=== PATIENT | female | born 1990 | race Caucasian/White ===

== ENCOUNTER 2023-03-01 12:30 | Emergency (ER) | payer OTHER ==
[~2023-03-01] VITALS: Ht 154.9 cm; Wt 68.0 kg
[2023-03-01 12:47] VITALS: O2SAT 97
[2023-03-01] MEDS ORDERED: KETOROLAC TROMETHAMINE 15 MG INJ IVP ONE (13:00)
[2023-03-01] MEDS ORDERED: ACETAMINOPHEN 325 MG TABLET PO ONE (13:00)
[2023-03-01] MEDS ORDERED: IV NORMAL SALINE 500 ML BAG IV ONE (13:00)
[2023-03-01] MEDS ORDERED: KETOROLAC TROMETHAMINE 15 MG INJ ONE (13:00)
[2023-03-01] MEDS ORDERED: METOCLOPRAMIDE HCL 10 MG/2 ML VIAL IV ONE (13:00)
[2023-03-01] MEDS ORDERED: METOCLOPRAMIDE HCL 10 MG/2 ML VIAL ONE (13:00)
[2023-03-01] MEDS ORDERED: ACETAMINOPHEN 325 MG TABLET ONE (13:00)
== END 2023-03-01 14:30 | disposition home or self-care (01) ==
LOC: ER 12:30
DX: G43.909 Migraine, unspecified, not intractable, without status migrainosus (principal)
CPT/HCPCS: 99284; 96374; 96361; 96375; J1885; J2765; J7040; A4606; A4663